=== PATIENT | male | born 1975 | race Caucasian/White ===

== ENCOUNTER 2021-03-03 23:46 | Emergency (ER) | payer SELFPAY ==
[2021-03-04] MEDS ORDERED: Ondansetron 4 MG/2 ML SDV IVPUSH ONE (00:10)
[2021-03-04] MEDS ORDERED: Sodium Chloride 0.9% 1,000 ML IV ONE (00:10)
[2021-03-04] MEDS ORDERED: Ketorolac 15 MG/ML SDV IVPUSH ONE (00:10)
[2021-03-04] MEDS ORDERED: Sodium Chloride 0.9% 10 ML Syringe FLUSH PRN (00:10)
[2021-03-04] MEDS ORDERED: Sodium Chloride 0.9% 2.5 ML Syringe FLUSH PRN (00:10)
[2021-03-04] MEDS ORDERED: Ketorolac 30 MG/ML SDV ONE (00:14)
[2021-03-04] MEDS ORDERED: Ketorolac 30 MG/ML SDV IVPUSH ONE (00:15)
[2021-03-04 01:13] LABS: BLOOD UREA NITROGEN,BUN 13 mg/dL (7.0-18.0); CARBON DIOXIDE,CO2 24.2 mmol/L (21.0-32.0); CHLORIDE,CL 103 mmol/L (98-107); GLUCOSE RANDOM 104 mg/dL (74-106); LIPASE 86 U/L (73-393); POTASSIUM,K 3.3 mmol/L (3.5-5.1); SODIUM,NA 138 mmol/L (136-148)
[2021-03-04] MEDS ORDERED: Iopamidol 755 MG/ML 500 ML Multipack Bottle IVPUSH ONE (01:24)
[2021-03-04] MEDS ORDERED: fentaNYL 50 MCG/ML SDV IVPUSH ONE (02:05)
--- NOTE | 2021-03-04 02:09 | CT ---
INDICATION: Lower abdominal pain. COMPARISON: None available TECHNIQUE: CT examination of the abdomen and pelvis was performed with the uneventful intravenous administration of 100 cc of Isovue 370 while 2.5 mm thick axial sections were obtained from the lung bases through the pubic symphysis. Oral contrast was not administered. Please note that all CT scans at this facility use dose modulation, iterative reconstruction, and/or weight-based dosing when appropriate to reduce radiation dose to as low as reasonably achievable. FINDINGS: In the abdomen, the liver, spleen, pancreas, and adrenals are normal in appearance. The kidneys are normal in appearance. The gallbladder is normal in appearance. The abdominal aorta is normal in caliber with no sign of dilatation. There is no sign of retroperitoneal mass or adenopathy. The stomach, loops of small bowel, and right colon in the abdomen are normal in appearance. There is moderate diverticulosis of the descending colon with no sign of diverticulitis. In the pelvis, the retrocecal appendix is normal in appearance with no sign of inflammatory process. The loops of small bowel in the pelvis are normal in appearance. There is moderate inflammatory reaction posterior to the midportion of the sigmoid colon where there is also a moderately inflamed diverticulum. The findings are that of moderate diverticulitis with no sign of abscess or perforation. There is severe diverticulosis of the proximal sigmoid colon with no sign of any additional diverticulitis. The prostate is normal in appearance. The urinary bladder is normal in appearance. There is no sign of pelvic or inguinal mass or adenopathy. There is no sign of free air or free fluid in the abdomen or pelvis. There is a small fat containing right posterior diaphragmatic hernia, a Bochdalek`s hernia, with mild surrounding atelectasis. There is mild linear atelectasis in the posterior left lung base of no clinical concern. There is mild scoliosis of the thoracolumbar spine convex towards the left. There are multiple Schmorl`s nodes. There is mild disc degenerative disease in the inferior thoracic spine and at L1-2 and L2-3. Additional mild disc degenerative disease is seen at L3-4 and L4-5. IMPRESSION: CT of the pelvis shows moderate diverticulitis of the mid sigmoid colon with no sign of abscess or perforation. Severe diverticulosis of the proximal sigmoid colon. CT of the abdomen shows moderate diverticulosis of the descending colon with no sign of diverticulitis. Please note that all CT scans at this facility use dose modulation, iterative reconstruction, and/or weight-based dosing when appropriate to reduce radiation dose to as low as reasonably achievable. Dictated by Apolinar North MD @ 03/04/2021 2:08:44 AM (Electronically Signed)
[2021-03-04] MEDS ORDERED: Ciprofloxacin 500 MG Tab PO ONE (02:20)
[2021-03-04] MEDS ORDERED: metroNIDAZOLE 250 MG Tab PO ONE (02:21)
--- NOTE | 2021-03-04 02:34 | EDM.PDOC ---
ED HPI GENERAL MEDICAL PROBLEM - General Chief Complaint: Abdominal Pain Stated Complaint: ABDOMINAL PAIN Time Seen by Provider: 03/04/21 00:12 - History of Present Illness INITIAL COMMENTS - FREE TEXT/NARRATIVE: HISTORY AND PHYSICAL: History of present illness: This is a 45-year-old gentleman with a history significant for hypertension who presents ER today secondary to lower abdominal pain x1 to 2 days. Patient denies any recent fevers, shakes, chills. Patient is nauseous with no vomiting or diarrhea. Patient has any melena or bright red blood per rectum. Patient has any cough cold or rhinorrhea. Patient denies any dysuria, frequency, urgency, testicular pain. Patient denies any history of diabetes, liver, lung, kidney problems in the past. Patient denies any history of diverticulosis or diverticulitis in the past. Patient reports that the pain increases with ambulation and meals. Patient denies any melena, bright red blood per rectum, coffee-ground emesis or hematemesis. Review of systems: As per history of present illness and below otherwise all systems reviewed and negative. Past medical history: As per history of present illness and as reviewed below otherwise noncontributory. Surgical history: As per history of present illness and as reviewed below otherwise noncontributory. Social history: No reported history of drug abuse. Family history: As per history of present illness and as reviewed below otherwise noncontributory. Physical exam: This patient was seen and evaluated during the 2019 SARS-CoV-2 novel coronavirus pandemic period. Community viral transmission is ongoing at time of this encounter and the emergency department is operating under pandemic response procedures. Constitutional: Patient is oriented to person, place, and time. Appears well- developed and well-nourished. No distress. HEENT: Moist mucous membranes Head: Normocephalic and atraumatic Eyes: Right eye exhibits no discharge. Left eye exhibits no discharge. No scleral icterus Neck: Normal range of motion. No tracheal deviation present. Cardiovascular: Normal rate and regular rhythm. Pulmonary: Effort normal, no respiratory distress. Abd: Soft, nondistended, no rebound/guarding, no psoas or obturator signs, no tenderness at Mcberney's point, no Montes's sign. Pt does not present with an exam that would be consistent with an acute surgical abdomen at this time. Mild tenderness diffusely to the lower abdomen. Minimal tenderness to the upper abdomen. Musculoskeletal: Normal range of motion Neurologic: Alert and oriented to person, place and time. Skin: [place], warm and dry. Psychiatric: Normal mood and affect. Behavior is normal. Judgment and thought content normal. Nursing note and vital signs have been reviewed Diagnostics: CT scan of the abdomen pelvis reveals mild sigmoid diverticulitis with no evidence of perforation or abscess. WBC count of 14.8 with 70 segs 20 lymphs 8 monos. Patient's electrolytes were all within normal limits. Urinalysis was unremarkable. Therapeutics: NSS x1 L, Zofran, Toradol. Fentanyl 50 mcg IV. Cipro/Flagyl p.o. given in the ED. Assessment and plan: 45-year-old gentleman who presents ER today with CT scan consistent with diverticulitis. Patient has been given a dose of Cipro and Flagyl in the ED and will be discharged home with a prescription for Cipro, Flagyl, [place], Zofran, ibuprofen. I have discussed with the patient the need to follow-up with his doctor for a GI evaluation after completion of therapy. Patient is to return to the ER if he has worsening pain, fevers or any other new or concerning symptoms. Reassessment at the time of disposition demonstrates that the patient is in no acute distress. The patient has remained stable throughout the entire ED visit and is without objective evidence for acute process requiring urgent intervention or hospitalization. The patient is stable for discharge, counseling is provided as documented above, discussed symptomatic treatment and specific conditions for return. I have spoken with the patient/caregiver and discussed todays findings, in addition to providing specific details for the plan of care. Questions are answered and there is agreement with the plan. Definitive disposition and diagnosis as appropriate pending reevaluation and review of above. Bilateral Lower Abdomen Pain Score (Numeric/FACES): 8 - Related Data Allergies Allergy/AdvReac Type Severity Reaction Status Date / Time No Known Allergies Allergy Verified 03/03/21 23:52 Home Meds: Home Meds Ciprofloxacin [Ciprofloxacin HCl] 500 mg PO BID #20 tab 03/04/21 [Rx] Hydrocodone/Acetaminophen [Hydrocodone-Acetamin 5-325 mg] 1 each PO Q6HR PRN #14 tab 03/04/21 [Rx] Ibuprofen 600 mg PO Q6HR PRN #30 tablet 03/04/21 [Rx] Ondansetron [Zofran ODT] 4 mg PO Q6H PRN #12 tab.dis 03/04/21 [Rx] metroNIDAZOLE [Flagyl] 500 mg PO Q8H #30 tab 03/04/21 [Rx] Past Medical History Cardiovascular History: Reports: Hypertension - Past Surgical History Musculoskeletal Surgical History: Reports: Shoulder Surgery Social & Family History - Tobacco Use Tobacco Use Status *Q: Current Every Day Tobacco User Years of Tobacco use: 25 Packs/Tins Daily: 2 - Recreational Drug Use Recreational Drug Use: No ED ROS GENERAL - Review of Systems Review Of Systems: See Below ED EXAM, GENERAL - Physical Exam Exam: See Below Course - Vital Signs Last Recorded V/S: Last Vital Signs Temp 97.7 F 03/04/21 01:53 Pulse 82 03/04/21 01:53 Resp 18 03/04/21 01:53 BP 145/90 H 03/04/21 01:53 Pulse Ox 97 03/04/21 01:53 - Orders/Labs/Meds Orders: Active Orders 24 hr Category Date Time Status Sodium Chloride 0.9% [Saline Flush] Med 03/04/21 00:10 Active 10 ml FLUSH ASDIRECTED PRN Sodium Chloride 0.9% [Saline Flush] Med 03/04/21 00:10 Active 2.5 ml FLUSH ASDIRECTED PRN Saline Lock Insert [OM.PC] Stat Oth 03/04/21 00:10 Ordered Medication Orders Sodium Chloride (Sodium Chloride 0.9% 10 Ml Syringe) 10 ml FLUSH ASDIRECTED PRN PRN Reason: Keep Vein Open Last Admin: 03/04/21 00:29 Dose: 10 ml Documented by: MIGUEL Sodium Chloride (Sodium Chloride 0.9% 2.5 Ml Syringe) 2.5 ml FLUSH ASDIRECTED PRN PRN Reason: Keep Vein Open Last Admin: 03/04/21 00:31 Dose: 2.5 ml Documented by: MIGUEL Labs: Laboratory Tests 03/04/21 03/04/21 03/04/21 Range/Units 00:05 00:21 00:50 WBC 14.79 H (4.0-11.0) K/uL RBC 4.68 (4.50-5.90) M/uL Hgb 16.3 (13.0-17.0) g/dL Hct 45.1 (38.0-50.0) % MCV 96.4 (80.0-98.0) fL MCH 34.8 H (27.0-32.0) pg MCHC 36.1 (31.0-37.0) g/dL RDW Std Deviation 46.7 (28.0-62.0) fl RDW Coeff of Rafat 13 (11.0-15.0) % Plt Count 207 (150-400) K/uL MPV 11.90 (7.40-12.00) fL Neut % (Auto) 70.0 (48.0-80.0) % Lymph % (Auto) 20.0 (16.0-40.0) % [place] % (Auto) 7.6 (0.0-15.0) % Eos % (Auto) 2.1 (0.0-7.0) % Baso % (Auto) 0.3 (0.0-1.5) % Neut # (Auto) 10.4 H (1.4-5.7) K/uL Lymph # (Auto) 3.0 H (0.6-2.4) K/uL Dawson # (Auto) 1.1 H (0.0-0.8) K/uL Eos # (Auto) 0.3 (0.0-0.7) K/uL Baso # (Auto) 0.0 (0.0-0.1) K/uL Nucleated RBC % 0.0 /100WBC Nucleated RBCs # 0 K/uL Sodium 138 (136-148) mmol/L Potassium 3.3 L (3.5-5.1) mmol/L Chloride 103 (98-107) mmol/L Carbon Dioxide 24.2 (21.0-32.0) mmol/L BUN 13 (7.0-18.0) mg/dL Creatinine 0.9 (0.8-1.3) mg/dL Est Cr Clr Drug Dosing 114.96 mL/min Estimated GFR (MDRD) > 60.0 ml/min Glucose 104 (74-106) mg/dL Calcium 8.3 L (8.5-10.1) mg/dL Total Bilirubin 0.5 (0.2-1.0) mg/dL AST 12 L (15-37) IU/L ALT 26 (14-63) IU/L Alkaline Phosphatase 65 (46-116) U/L Total Protein 6.6 (6.4-8.2) g/dL Albumin 3.2 L (3.4-5.0) g/dL Globulin 3.4 (2.6-4.0) g/dL Albumin/Globulin Ratio 0.9 (0.9-1.6) Lipase 86 (73-393) U/L Urine Color YELLOW Urine Appearance CLEAR Urine pH 6.5 (5.0-8.0) Ur Specific [place] 1.010 (1.001-1.035) Urine Protein NEGATIVE (NEGATIVE) mg/dL Urine Glucose (UA) NEGATIVE (NEGATIVE) mg/dL Urine Ketones NEGATIVE (NEGATIVE) mg/dL Urine Occult Blood TRACE-INTACT H (NEGATIVE) Urine Nitrite NEGATIVE (NEGATIVE) Urine Bilirubin NEGATIVE (NEGATIVE) Urine Urobilinogen 0.2 (<2.0) EU/dL Ur Leukocyte Esterase NEGATIVE (NEGATIVE) Urine RBC 0-1 (0-2/HPF) Urine WBC 0-1 (0-5/HPF) Ur Epithelial Cells NOT SEEN (NONE-FEW) Amorphous Sediment LIGHT (NEGATIVE) Urine Bacteria NOT SEEN (NEGATIVE) Meds: Medications Generic Name Dose Route Start Last Admin Trade Name Lucien PRN Reason Stop Dose Admin Sodium Chloride 10 ml 03/04/21 00:10 03/04/21 00:29 Sodium Chloride 0.9% 10 Ml Syringe FLUSH 10 ml ASDIRECTED PRN Administration Keep Vein Open Sodium Chloride 2.5 ml 03/04/21 00:10 03/04/21 00:31 Sodium Chloride 0.9% 2.5 Ml Syringe FLUSH 2.5 ml ASDIRECTED PRN Administration Keep Vein Open Discontinued Medications Generic Name Dose Route Start Last Admin Trade Name Lucien PRN Reason Stop Dose Admin Ciprofloxacin 500 mg 03/04/21 02:20 Ciprofloxacin 500 Mg Tab PO 03/04/21 02:21 ONETIME ONE Fentanyl 50 mcg 03/04/21 02:05 Fentanyl 50 Mcg/Ml Sdv IVPUSH 03/04/21 02:06 ONETIME ONE Sodium Chloride 1,000 mls @ 999 mls/hr 03/04/21 00:10 03/04/21 00:17 Normal Saline IV 03/04/21 01:10 999 mls/hr .Bolus ONE Administration Iopamidol 100 ml 03/04/21 01:24 03/04/21 01:27 Iopamidol 755 Mg/Ml 500 Ml Multipack Bottle IVPUSH 03/04/21 01:25 100 ml ONETIME ONE Administration Ketorolac Tromethamine 15 mg 03/04/21 00:10 03/04/21 00:15 Ketorolac 15 Mg/Ml Sdv IVPUSH 03/04/21 00:11 Not Given ONETIME ONE Ketorolac Tromethamine Confirm 03/04/21 00:14 03/04/21 00:15 Ketorolac 30 Mg/Ml Sdv Administered 03/04/21 00:15 Not Given Dose 30 mg .ROUTE .STK-MED ONE Ketorolac Tromethamine 15 mg 03/04/21 00:15 03/04/21 00:17 Ketorolac 30 Mg/Ml Sdv IVPUSH 03/04/21 00:16 15 mg ONETIME ONE Administration Metronidazole 500 mg 03/04/21 02:21 Metronidazole 250 Mg Tab PO 03/04/21 02:22 ONETIME ONE Ondansetron HCl 4 mg 03/04/21 00:10 03/04/21 00:17 Ondansetron 4 Mg/2 Ml Sdv IVPUSH 03/04/21 00:11 4 mg ONETIME ONE Administration Departure - Departure Time of Disposition: 02:31 Disposition: Home, Self-Care 01 Condition: Good Clinical Impression: Diverticulitis of sigmoid colon - Discharge Information Instructions: Diverticulitis Referrals: PCP,Not In Area [Primary Care Provider] - Additional Instructions: You were seen and evaluated in ER today secondary to abdominal pain. The CT scan reveals that you have mild sigmoid diverticulitis. You will get started on antibiotic called ciprofloxacin and Flagyl to take for 10 days. You will also be given [place] and ibuprofen to help you with your pain as well as Zofran help you with nausea and vomiting. Please see your family doctor in the next 2 to 3 days for reevaluation. Please return the ER if you start developing high fevers or worsening pain. You will need to follow-up with a GI specialist for a colonoscopy after completion of therapy. The following information is given to patients seen in the emergency department who are being discharged to home. This information is to outline your options for follow-up care. We provide all patients seen in our emergency department with a follow-up referral. The need for follow-up, as well as the timing and circumstances, are variable depending upon the specifics of your emergency department visit. If you don't have a primary care physician on staff, we will provide you with a referral. We always advise you to contact your personal physician following an emergency department visit to inform them of the circumstance of the visit and for follow-up with them and/or the need for any referrals to a consulting specialist. The emergency department will also refer you to a specialist when appropriate. This referral assures that you have the opportunity for follow-up care with a specialist. All of these measure are taken in an effort to provide you with optimal care, which includes your follow-up. Under all circumstances we always encourage you to contact your private physician who remains a resource for coordinating your care. When calling for follow-up care, please make the office aware that this follow-up is from your recent emergency room visit. If for any reason you are refused follow-up, please contact the [facility] Emergency Department at and asked to speak to the emergency department charge nurse. [facility] - Primary [facility] [address] [place] [address] [place] [address] Sepsis Event Note (ED) - Evaluation Sepsis Screening Result: No Definite Risk - Focused Exam Vital Signs: Vital Signs Temp Pulse Resp BP Pulse Ox 03/04/21 01:53 97.7 F 82 18 145/90 H 97 03/03/21 23:53 98.1 F 89 17 169/105 H 95 - My Orders Last 24 Hours: My Active Orders 03/04/21 00:10 Sodium Chloride 0.9% [Saline Flush] 10 ml FLUSH ASDIRECTED PRN Sodium Chloride 0.9% [Saline Flush] 2.5 ml FLUSH ASDIRECTED PRN Saline Lock Insert [OM.PC] Stat - Assessment/Plan Last 24 Hours: My Active Orders 03/04/21 00:10 Sodium Chloride 0.9% [Saline Flush] 10 ml FLUSH ASDIRECTED PRN Sodium Chloride 0.9% [Saline Flush] 2.5 ml FLUSH ASDIRECTED PRN Saline Lock Insert [OM.PC] Stat
== END 2021-03-04 03:02 | disposition home or self-care (01) ==
LOC: MW.ED 23:46
DX: K57.32 Diverticulitis of large intestine without perforation or abscess without bleeding (principal); I10 Essential (primary) hypertension; Z72.0 Tobacco use; Z79.899 Other long term (current) drug therapy
CPT/HCPCS: 74177; 80053; 81001; 83690; 85025; 96374; 96375; 99284; A9270; J1885; J2405; J3010; J7030; Q9967